=== PATIENT | female | born 1970 | race Caucasian/White ===

== ENCOUNTER 2020-02-06 18:24 | Emergency (ER) | payer BC, SELFPAY ==
[2020-02-06 18:34] VITALS: BP 148/60; PULSE 65; RESP 20; TEMP 36.8; O2SAT 100
--- NOTE | 2020-02-06 18:52 | ED.GENADULT ---
HPI - General Adult General Chief complaint: Ear Stated complaint: ear feels full/headache/dizzy Time Seen by Provider: 02/06/20 18:52 Source: patient and RN notes reviewed Mode of arrival: ambulatory Limitations: no limitations History of Present Illness HPI narrative: 49-year-old female presents with complaints of bilateral ear itching, LT otalgia, dizziness, and intermittent headache (not the worst of her life) for the past 14 days. Symptoms increased over the past 2 days. Ibuprofen (last on 02/06/2020) and Singulair and without relief. No facial swelling. Denies cough and chest congestion. No nasal congestion and rhinorrhea. No sore throat. No high fevers, drooling, neck or throat swelling. No voice change. Denies difficulty swallowing, ear trauma, trauma to head, syncopal episodes, altered vision, altered speech, confusion, or seizure activity. Denies numbness or tingling in extremities. LMP endometrial ablation. Remains active. The patient reports she have not been diagnosed with COVID-19. The patient reports she is not waiting for the results of a COVID-19 lab test. The patient reports she do not have chills, weakness, or fatigue. The patient reports she do not have a worsening cough or shortness of breath. Denies chest pain. The patient reports she do not have any sore throat, loss of taste, nausea, vomiting, abdominal pain, and diarrhea. Tolerating po intake well. Denies recent traveling. Denies concerns for COVID-19 or exposures been home with limited outdoor exposure except for essential household needs, work, and return home. At this time, patient is not suspected of having COVID-19. Some parts of this dictation were generated by voice recognition software and may contain typographical and/or grammatical inaccuracies. Related Data Home Medications Medication Instructions Recorded Confirmed aspirin 81 mg PO DAILY 02/06/20 02/06/20 liraglutide [Victoza 2-Reynaldo] 1.2 mg SUBCUT DAILY 02/06/20 02/06/20 lisinopril 10 mg PO DAILY 02/06/20 02/06/20 montelukast 10 mg PO DAILY 02/06/20 02/06/20 omeprazole 20 mg PO DAILY 02/06/20 02/06/20 simvastatin 10 mg PO HS 02/06/20 02/06/20 Allergies Allergy/AdvReac Type Severity Reaction Status Date / Time amoxicillin [From Augmentin] Allergy Intermediate Hives Verified 02/06/20 18:53 clavulanic acid Allergy Intermediate Hives Verified 02/06/20 18:53 [From Augmentin] sulfamethoxazole AdvReac Severe Difficulty Verified 02/06/20 18:53 [From Bactrim] Breathing trimethoprim [From Bactrim] AdvReac Severe Difficulty Verified 02/06/20 18:53 Breathing Review of Systems Review of Systems: Narrative: CONSTITUTIONAL: Denies fever, chills, sweats. EYES: Denies visual changes, redness, discharge. ENT: Complains of otalgia, itching. Denies congestion, rhinorrhea, sore throat. CARDIOVASCULAR: Denies chest pain, palpitations, edema. RESPIRATORY: Denies dyspnea, wheezing, cough. GASTROINTESTINAL: Denies abdominal pain, nausea, vomiting, diarrhea. GENITOURINARY: Denies dysuria, hematuria, abnormal discharge SKIN: Denies rash or itching. MUSCULOSKELETAL: Denies acute back pain, joint pain, or myalgia. NEUROLOGIC: Denies numbness, or focal weakness. Complains of intermittent MARES. PSYCHIATRIC: Denies anxiety or depression. All other systems reviewed & are unremarkable except as noted in HPI and below. [facility] Past Medical History Medical History (Updated 02/07/20 @ 00:00 by Maria Guadalupe Anderson) Allergies Diabetes Hypercholesteremia Hypertension Surgical History Surgical History (Updated 02/06/20 @ 19:07 by GUS Conrad) History of abdominal surgery Laparoscopic History of carpal tunnel surgery Bilateral History of endometrial ablation History of tubal ligation Family History Family History (Updated 02/06/20 @ 19:08 by GUS Conrad) Father Unknown family medical history Mother Diabetes mellitus Hypertension Rheumatoid arthritis
[2020-02-06 19:00] VITALS: BP 133/58; PULSE 55
[2020-02-06 19:04] VITALS: BP 146/54; PULSE 65
[2020-02-06 19:08] VITALS: BP 135/52; PULSE 115
== END 2020-02-06 19:15 | disposition home or self-care (01) ==
PROVIDERS: Emergency Provider Nurse Practitioner Family
DX: J32.9 Chronic sinusitis, unspecified (principal); Z87.891 Personal history of nicotine dependence; E11.9 Type 2 diabetes mellitus without complications; E78.00 Pure hypercholesterolemia, unspecified; I10 Essential (primary) hypertension; Z79.82 Long term (current) use of aspirin
CPT/HCPCS: 99203; G0463